=== PATIENT | female | born 1940 | race Two or more races ===

== ENCOUNTER → 2016-11-28 | Outpatient (CLI) | payer OTHER | LOC: CIMAGING 10:53 | PROVIDERS: ATTEND Internal Medicine | DX: M25.511 Pain in right shoulder (principal) | CPT/HCPCS: 73030-PO ==

== ENCOUNTER → 2017-04-18 | Outpatient (CLI) | payer OTHER ==
[~2017-04-18] MED LIST: IOPAMIDOL (ISOVUE-300) 100 ML BTL ONE
== END ==
LOC: CIMAGING 12:46
PROVIDERS: ATTEND Internal Medicine
DX: R10.9 Unspecified abdominal pain (principal); Z85.42 Personal history of malignant neoplasm of other parts of uterus
CPT/HCPCS: 74177; Q9967

== ENCOUNTER → 2017-08-19 | Outpatient (CLI) | payer OTHER | LOC: CIMAGING 15:06 | PROVIDERS: ATTEND Internal Medicine | DX: R20.0 Anesthesia of skin (principal); R53.83 Other fatigue | CPT/HCPCS: 70450-PO ==

== ENCOUNTER → 2017-11-06 | Outpatient (CLI) | payer OTHER | LOC: CIMAGING 11:36 | PROVIDERS: ATTEND Internal Medicine | DX: R10.84 Generalized abdominal pain (principal) | CPT/HCPCS: 74019-PO ==